=== PATIENT | female | born 1950 | race Caucasian/White ===

== ENCOUNTER 2018-03-10 16:19 | Outpatient (CLI) | payer BC ==
[2018-03-10 17:01] LABS: #Basophils 0.1 thou/uL (0.0-0.2); #Eosinphils 0.1 thou/uL (0.0-0.7); #Lymphocytes 1.5 thou/uL (1.20-3.40); #Monocytes 0.5 thou/uL (0.11-0.59); #Neutrophils 2.8 thou/uL (1.40-6.50); %Basophils 1.3 % (0.0-1.0); %Eosinophils 2.8 % (0.0-10.0); %Lymphocytes 30.2 % (21.0-51.0); %Monocytes 10.5 % (0.0-10.0); %Neutrophils 55.2 % (42.0-75.0); Hemoglobin 12.5 g/dL (12.0-16.0); Mean Corpuscular HGB CONC 32.7 g/dL (32.0-36.0); Mean Corpuscular Hemoglobin 29.1 pg (27.0-31.0); Mean Platelet Volume 6.8 fL (7.4-10.4); Platelet Count 313 thou/uL (130-400); RBC Distribution Width 11.8 % (11.5-14.5); Red Blood Cell (RBC) Count 4.29 mill/uL (4.20-5.40)
[2018-03-10 17:04] LABS: PTT 29.3 SEC (22.9-36.1); Prothrombin Time 13.7 SEC (12.0-14.7)
[2018-03-10 17:45] LABS: ALT (SGPT) 14 U/L (8-55); AST (SGOT) 17 U/L (5-34); Albumin 4.5 g/dL (3.4-4.8); Alkaline Phosphatase 63 U/L (40-150); Anion Gap 8 mmol/L (10-20); BUN (Urea Nitrogen) 10 mg/dL (9.8-20.1); Bilirubin, Total 0.5 mg/dL (0.2-1.2); Calc. Creatinine Clearance 0 mL/min (70-130); Calcium 9.6 mg/dL (7.8-10.44); Carbon Dioxide 30 mmol/L (23-31); Cardiac Risk 3.2 (Less than 4.5); Chloride 105 mmol/L (98-107); Cholesterol 216 mg/dl (< 200 Desired); Estimated GFR-MDRD 74; Globulin 2.6 g/dL (2.4-3.5); Glucose 98 mg/dL (80-115); HDL Cholesterol 67 mg/dL (>60 Neg Risk); LDL Cholesterol, Calculated 136 mg/dL; Protein, Total 7.1 g/dL (6.0-8.3); Sodium 139 mmol/L (136-145); Triglycerides 65 mg/dL (Less than 150)
== END 2018-03-10 16:20 | disposition home or self-care (01) ==
LOC: LABBT 16:19
PROVIDERS: ATTEND Internal Medicine Cardiovascular Disease
DX: Z01.812 Encounter for preprocedural laboratory examination (principal); R07.9 Chest pain, unspecified
CPT/HCPCS: 80053; 80061; 85025; 85610; 85730

== ENCOUNTER 2018-04-02 10:18 | Outpatient (CLI) | payer BC ==
[2018-04-02 11:23] LABS: #Basophils 0.1 thou/uL (0.0-0.2); #Eosinphils 0.1 thou/uL (0.0-0.7); #Lymphocytes 1.7 thou/uL (1.20-3.40); #Monocytes 0.6 thou/uL (0.11-0.59); #Neutrophils 3.4 thou/uL (1.40-6.50); %Basophils 1.4 % (0.0-1.0); %Eosinophils 1.9 % (0.0-10.0); %Lymphocytes 29.1 % (21.0-51.0); %Monocytes 9.4 % (0.0-10.0); %Neutrophils 58.2 % (42.0-75.0); Hemoglobin 13.5 g/dL (12.0-16.0); Mean Corpuscular HGB CONC 33.3 g/dL (32.0-36.0); Mean Corpuscular Hemoglobin 29.4 pg (27.0-31.0); Mean Corpuscular Volume 88.4 fL (78.0-98.0); Mean Platelet Volume 6.8 fL (7.4-10.4); Platelet Count 334 thou/uL (130-400); RBC Distribution Width 11.8 % (11.5-14.5); Red Blood Cell (RBC) Count 4.58 mill/uL (4.20-5.40); White Blood Cell (WBC) Count 5.8 thou/uL (4.8-10.8)
[2018-04-02 11:29] LABS: Prothrombin Time 13.4 SEC (12.0-14.7)
[2018-04-02 11:30] LABS: PTT 29.4 SEC (22.9-36.1)
[2018-04-02 11:45] LABS: ALT (SGPT) 38 U/L (8-55); AST (SGOT) 29 U/L (5-34); Albumin 4.5 g/dL (3.4-4.8); Alkaline Phosphatase 81 U/L (40-150); Anion Gap 12 mmol/L (10-20); BUN (Urea Nitrogen) 11 mg/dL (9.8-20.1); Bilirubin, Total 0.6 mg/dL (0.2-1.2); Calc. Creatinine Clearance 0 mL/min (70-130); Calcium 9.6 mg/dL (7.8-10.44); Carbon Dioxide 29 mmol/L (23-31); Cardiac Risk 3.5 (Less than 4.5); Chloride 103 mmol/L (98-107); Cholesterol 248 mg/dl (< 200 Desired); Estimated GFR-MDRD 73; Globulin 2.7 g/dL (2.4-3.5); Glucose 93 mg/dL (80-115); HDL Cholesterol 71 mg/dL (>60 Neg Risk); LDL Cholesterol, Calculated 167 mg/dL; Protein, Total 7.2 g/dL (6.0-8.3); Sodium 140 mmol/L (136-145); Triglycerides 52 mg/dL (Less than 150)
== END 2018-04-02 10:19 | disposition home or self-care (01) ==
LOC: LABBT 10:18
PROVIDERS: ATTEND Internal Medicine Cardiovascular Disease
DX: Z01.812 Encounter for preprocedural laboratory examination (principal); R07.9 Chest pain, unspecified
CPT/HCPCS: 80053; 80061; 85025; 85610; 85730

== ENCOUNTER 2018-04-07 06:04 | Day surgery (SDC) | payer BC ==
[2018-04-02 10:39] VITALS: BMI 18.3
[2018-04-07] MEDS ORDERED: Lidocaine 1% (PF) 30 ML VIAL ONE (08:24)
[2018-04-07] MEDS ORDERED: Verapamil 5 MG/2 ML VIAL ONE (08:25)
[2018-04-07] MEDS ORDERED: Nitroglycerin 100MG/250ML BOT 250 ML ONE (08:25)
[2018-04-07] MEDS ORDERED: Heparin 10,000 UNITS/1 ML VIAL ONE (08:25)
[2018-04-07] MEDS ORDERED: Fentanyl 100 MCG/2 ML VIAL ONE (08:32)
[2018-04-07] MEDS ORDERED: Midazolam HCl 2 mg/2 ml Vial ONE (08:33)
[2018-04-07] MEDS ORDERED: Acetaminophen 325 MG TAB ONE ×2 (12:27→12:28)
== END 2018-04-07 13:25 | disposition home or self-care (01) ==
LOC: CCL 06:04
PROVIDERS: ATTEND Internal Medicine Cardiovascular Disease
PROC: B2111ZZ Fluoroscopy of Multiple Coronary Arteries using Low Osmolar Contrast (ICD-10-PCS; principal; 2018-04-07)
PROC: 4A023N7 Measurement of Cardiac Sampling and Pressure, Left Heart, Percutaneous Approach (ICD-10-PCS; principal; 2018-04-07)
DX: R07.89 Other chest pain (principal); G43.909 Migraine, unspecified, not intractable, without status migrainosus; G20 Parkinson's disease; Z79.899 Other long term (current) drug therapy
CPT/HCPCS: 93458; 99152; C1769; J1644; J2001; J2250; J3010

== ENCOUNTER 2021-02-11 17:32 | Outpatient (CLI) | payer MEDICARE, BC | END 2021-02-11 17:33 | disposition home or self-care (01) | LOC: SCSRAD 17:32 | PROVIDERS: ATTEND Family Medicine | DX: R05 Cough (principal); J44.9 Chronic obstructive pulmonary disease, unspecified; I70.0 Atherosclerosis of aorta | CPT/HCPCS: 71046 ==

== ENCOUNTER 2021-03-14 15:04 | Outpatient (CLI) | payer MEDICARE, BC | END 2021-03-14 15:05 | disposition home or self-care (01) | LOC: BICULT 15:04 | PROVIDERS: ATTEND Family Medicine | DX: E04.1 Nontoxic single thyroid nodule (principal) | CPT/HCPCS: 76536 ==

== ENCOUNTER 2021-03-28 12:39 | Outpatient (CLI) | payer MEDICARE, BC | END 2021-03-28 12:40 | disposition home or self-care (01) | LOC: BICULT 12:39 | DX: I72.4 Aneurysm of artery of lower extremity (principal) | CPT/HCPCS: 93926 ==

== ENCOUNTER 2021-03-29 10:15 | Outpatient (CLI) | payer MEDICARE, BC | END 2021-03-29 10:16 | disposition home or self-care (01) | LOC: RAD 10:15 | PROVIDERS: ATTEND Internal Medicine Critical Care Medicine | DX: R60.0 Localized edema (principal) | CPT/HCPCS: 71046 ==

== ENCOUNTER 2021-08-23 09:52 | Outpatient (CLI) | payer MEDICARE, BC | END 2021-08-23 09:53 | disposition home or self-care (01) | LOC: BICRAD 09:52 | PROVIDERS: ATTEND Internal Medicine Rheumatology | DX: M47.9 Spondylosis, unspecified (principal) | CPT/HCPCS: 72052; 72110 ==

== ENCOUNTER 2022-11-20 10:07 | Outpatient (CLI) | payer MEDICARE, BC ==
[2022-11-20 12:41] LABS: #Basophils 0.1 10x3/uL (0.0-0.2); #Eosinphils 0.1 10x3/uL (0.0-0.5); #Monocytes 0.6 10x3/uL (0.0-1.1); #Neutrophils 3.2 10x3/uL (1.5-8.4); %Eosinophils 2.2 % (0.0-6.0); %Lymphocytes 22.1 % (18.0-47.0); %Monocytes 11.6 % (0.0-10.0); %Neutrophils 62.9 % (40.0-75.0); Hemoglobin 11.6 g/dL (12.0-15.5); Mean Corpuscular Hemoglobin 29.7 pg (27.0-33.0); Mean Platelet Volume 9.7 fl (7.4-10.4); Platelet Count 279 10x3/uL (150-450); RBC Distribution Width 13.3 % (11.5-14.5); Red Blood Cell (RBC) Count 3.91 10x6/uL (3.90-5.03)
[2022-11-20 13:32] LABS: ALT (SGPT) 7 U/L (8-55); AST (SGOT) 23 U/L (5-34); Albumin 4.3 g/dL (3.4-4.8); Alkaline Phosphatase 54 U/L (40-110); Anion Gap 13 mmol/L (10-20); BUN (Urea Nitrogen) 10 mg/dL (9.8-20.1); Bilirubin, Direct 0.1 mg/dL (0.1-0.3); Bilirubin, Total 0.2 mg/dL (0.2-1.2); Calc. Creatinine Clearance 0 mL/min (70-130); Calcium 9.3 mg/dL (7.8-10.44); Carbon Dioxide 30 mmol/L (23-31); Chloride 102 mmol/L (98-107); Estimated GFR 82; Glucose 84 mg/dL (80-115); Potassium 4.1 mmol/L (3.5-5.1); Protein, Total 6.6 g/dL (5.8-8.1); Sodium 141 mmol/L (136-145)
== END 2022-11-20 10:08 | disposition home or self-care (01) ==
LOC: LABBT 10:07
PROVIDERS: ATTEND Surgery
DX: Z01.812 Encounter for preprocedural laboratory examination (principal); K80.20 Calculus of gallbladder without cholecystitis without obstruction
CPT/HCPCS: 80048; 80076; 85025

== ENCOUNTER 2022-11-25 07:26 | Day surgery (SDC) | payer MEDICARE, BC ==
[2022-11-20 10:26] VITALS: BMI 18.8
[2022-11-25] MEDS ORDERED: fentaNYL PF 100 MCG/2 ML SYRINGE ONE (09:40)
[2022-11-25] MEDS ORDERED: SUGAMMADEX SODIUM 200 MG/2 ML VIAL ONE (09:40)
[2022-11-25] MEDS ORDERED: EPINEPHrine 1 MG/ML AMP ONE (09:41)
[2022-11-25] MEDS ORDERED: Indocyanine Green 25 MG/10 ML VIAL ONE (09:41)
[2022-11-25] MEDS ORDERED: Bupivacaine 0.25% HCL 30 ML VIAL ONE (09:41)
[2022-11-25] MEDS ORDERED: Sodium Chloride 0.9% 100 ML ONE (09:49)
[2022-11-25] MEDS ORDERED: CEFAZOLIN 2 GM VIAL ONE (09:49)
[2022-11-25] MEDS ORDERED: Lidocaine 1% PF 5 ML VIAL ONE (10:03)
[2022-11-25] MEDS ORDERED: Dexamethasone 20 MG/5 ML VIAL ONE (10:03)
[2022-11-25] MEDS ORDERED: Ondansetron PF 4 MG/2 ML Vial ONE ×2 (10:03→11:06)
[2022-11-25] MEDS ORDERED: Glycopyrrolate 0.2 MG/ML 5 ML SYRINGE ONE (10:03)
[2022-11-25] MEDS ORDERED: NEOSTIGMINE 3 MG/3 ML SYR 3 MG/3 ML SYRINGE ONE (10:03)
[2022-11-25] MEDS ORDERED: Rocuronium Bromide 10 MG/ML (10ML VIAL) ONE (10:03)
[2022-11-25] MEDS ORDERED: PROPOFOL 200 MG/20 ML VIAL ONE (10:03)
[2022-11-25] MEDS ORDERED: Dexmedetomidine 200 MCG/2 ML VIAL ONE (10:59)
[2022-11-25] MEDS ORDERED: fentaNYL 50 mcg/mL 1 mL Vial ONE ×3 (11:04→11:46)
[2022-11-25] MEDS ORDERED: Promethazine HCl 25 MG/ML VIAL ONE (11:28)
[2022-11-25] MEDS ORDERED: Ondansetron ODT 4 MG TAB ONE (12:39)
== END 2022-11-25 13:50 | disposition home or self-care (01) ==
LOC: SDC 07:26
PROVIDERS: ATTEND Surgery
PROC: 0FT44ZZ Resection of Gallbladder, Percutaneous Endoscopic Approach (ICD-10-PCS; principal; 2022-11-25)
DX: K80.10 Calculus of gallbladder with chronic cholecystitis without obstruction (principal); K31.A0 Gastric intestinal metaplasia, unspecified
CPT/HCPCS: 47562; C1889; J3010; 88304; J0171; J1100; J2405; J2550; J2704; J3490; Q0162; S0020

== ENCOUNTER 2023-11-11 13:45 | Outpatient (CLI) | payer MEDICARE | END 2023-11-11 13:46 | disposition home or self-care (01) | LOC: BICMAMMO 13:45 | PROVIDERS: ATTEND Internal Medicine Rheumatology | DX: M81.0 Age-related osteoporosis without current pathological fracture (principal) | CPT/HCPCS: 77080 ==